=== PATIENT | female | born 1975 | race Caucasian/White ===

== ENCOUNTER 2022-09-18 06:14 | Day surgery (SDC) | payer BC ==
[~2022-09-18 06:14] MED LIST: Bupivacaine 0.25% 10 ML SDV ONE; Lidocaine 1% 10 ML MDV ONE
[2022-09-18] MEDS ORDERED: Lidocaine 1%/Sod Bicarbonate in NS 8.4% 1 ML Syringe IDERM PRN (06:48)
[2022-09-18] MEDS ORDERED: Sodium Chloride 0.9% 10 ML Syringe FLUSH PRN (06:48)
[2022-09-18] MEDS ORDERED: Lactated Ringers 1,000 ML IV SCH (07:00)
[2022-09-18] MEDS ORDERED: Propofol 200 MG/20 ML SDV ONE (07:02)
[2022-09-18] MEDS ORDERED: Lidocaine 1% 5 ML VIAL ONE (07:02)
[2022-09-18] MEDS ORDERED: Ketorolac 30 MG/ML SDV ONE (07:02)
[2022-09-18] MEDS ORDERED: Sodium Chloride 0.9% 10 ML Syringe FLUSH SCH (09:00)
[2022-09-18 13:34] VITALS: BP 108/69; PULSE 71
== END 2022-09-18 08:22 | disposition home or self-care (01) ==
LOC: JD.SDS 06:14
PROVIDERS: ATTEND Orthopaedic Surgery
DX: M65.331 Trigger finger, right middle finger (principal); M65.841 Other synovitis and tenosynovitis, right hand; F41.9 Anxiety disorder, unspecified; J30.9 Allergic rhinitis, unspecified; D50.9 Iron deficiency anemia, unspecified; K21.9 Gastro-esophageal reflux disease without esophagitis; G43.909 Migraine, unspecified, not intractable, without status migrainosus; E55.9 Vitamin D deficiency, unspecified; Z79.899 Other long term (current) drug therapy; Z88.5 Allergy status to narcotic agent; Z98.890 Other specified postprocedural states; Z90.710 Acquired absence of both cervix and uterus
CPT/HCPCS: 26055; J1885; J2704; J3490; J7120; 01810